=== PATIENT | female | born 1995 | race Caucasian/White ===

== ENCOUNTER 2017-05-02 03:28 | Emergency (ER) | payer BC ==
[2017-05-02] MEDS ORDERED: Sodium Chloride 0.9% 1000 ML 1,000 ML IV STA (03:59)
[2017-05-02 04:06] LABS: BASOPHIL % 0.2 % (0.0-0.4); Basophil (Absolute #) 0.02 (0-0.4); Eosinophil % 0.9 % (0.00-5.0); Eosinophil (Absolute #) 0.12 (0-0.5); Granulocyte Absolute (ANC) 8.72 (1.4-6.9); Granulocytes % 67.3 % (36.0-66.0); Hematocrit 44.3 % (35-47); Hemoglobin 14.6 gm/dl (12.0-16.0); Lymphocyte (Absolute #) 3.26 (1.0-4.6); Lymphocytes % 25.2 % (24.0-44.0); Mean Cell Volume 90.6 fl (78-100); Mean Corpuscular Hemoglobin 29.9 pg (26-32); Mean Platelet Volume 9.8 fl (6-9.5); Monocyte (Absolute #) 0.83 (0.0-1.3); Monocytes % 6.4 % (0.0-12.0); Platelet Count 268 K/mm3 (150-450); Red Blood Count 4.89 M/mm3 (4.1-5.4); Red Cell Distribution Width 12.7 % (11.5-14.0)
[2017-05-02] MEDS ORDERED: Sodium Chloride 0.9% 1000 ML 1,000 ML ONE (04:09)
[2017-05-02 04:22] LABS: ANION GAP 18.6 MEQ/L (5-15); BLOOD UREA NITROGEN 19 mg/dL (7-17); CHLORIDE 98 mmol/L (98-107); Calcium 10.5 mg/dL (8.4-10.2); Carbon Dioxide 26 mmol/L (22-30); Creatinine 1 0.61 mg/dL (0.52-1.04); Glucose 138 mg/dL (74-106); Potassium 3.6 mmol/L (3.5-5.1); SODIUM 140 mmol/L (137-145)
--- NOTE | 2017-05-02 04:26 | ERPHSYRPT ---
- History of Present Illness Time Seen by Provider: 05/02/17 03:45 Source: patient Exam Limitations: clinical condition Patient Subjective Stated Complaint: Pain in right flank that radiates to right front abdomen. Blood in urine 2 days ago and had pain while urinating but that has subsided. Triage Nursing Assessment: Pt A&O x3, pain during palpation of RUQ and right lateral side of abdomen, stated that she has pain in the right flank, P 104, BP 146/97, urine cloudy, bilateral pulses normal, bowel sounds in all 4 quadrants Physician History: PATIENT COMPLAINS OF ACUTE RIGHT FLANK PAIN SINCE 8PM LAST NIGHT WITH RADIATION AROUND TO LOWER ABDOMEN ASSOCIATED WITH FREQUENCY AND HEMATURIA PAST 48 HOURS. DENIES FEVER OR CHILLS Timing/Duration: yesterday Activites at Onset: none Quality: throbbing Onset Location: right flank Pain Radiation: RLQ Severity of Pain-Max: moderate Severity of Pain-Current: moderate Prior abdominal problems: none Sexual intercourse history: non-contributory Modifying Factors: Improves With: nothing Associated Symptoms: dysuria, other (HEMATURIA) Allergies/Adverse Reactions: Penicillins Allergy (Mild, Verified 05/02/17 03:51) Rash escitalopram [From Lexapro] Adverse Reaction (Verified 05/02/17 03:52) Home Medications: Norgestimate-Ethinyl Estradiol [Tri-Sprintec] 1 tablet PO DAILY 05/02/17 [ History] Hx Tetanus, Diphtheria Vaccination/Date Given: No Hx Influenza Vaccination/Date Given: No Hx Pneumococcal Vaccination/Date Given: No - Review of Systems Constitutional: No Fever, No Chills Eyes: No Symptoms Ears, Nose, & Throat: No Symptoms Respiratory: No Symptoms, No Cough, No Dyspnea Cardiac: No Symptoms, No Chest Pain, No Edema, No Syncope Abdominal/Gastrointestinal: Abdominal Pain, No Nausea, No Vomiting, No Diarrhea Genitourinary Symptoms: Frequency, Hematuria, Flank Pain, No Dysuria Musculoskeletal: No Symptoms, No Back Pain, No Neck Pain Skin: No Rash Neurological: No Dizziness, No Focal Weakness, No Sensory Changes Psychological: No Symptoms Endocrine: No Symptoms All Other Systems: Reviewed and Negative - Past Medical History Pertinent Past Medical History: Yes Neurological History: No Pertinent History ENT History: No Pertinent History Cardiac History: No Pertinent History Respiratory History: No Pertinent History Endocrine Medical History: No Pertinent History Musculoskeletal History: No Pertinent History GI Medical History: No Pertinent History History: No Pertinent History Psycho-Social History: No Pertinent History Female Reproductive Disorders: No Pertinent History Other Medical History: depression - Past Surgical History Past Surgical History: Yes Neuro Surgical History: No Pertinent History Cardiac: No Pertinent History Respiratory: No Pertinent History Gastrointestinal: No Pertinent History Genitourinary: No Pertinent History Musculoskeletal: No Pertinent History Female Surgical History: No Pertinent History Other Surgical History: toe sx, tonsils, tubes, cysts removed supa wrists - Social History Smoking Status: Never smoker Exposure to second hand smoke: No Drug Use: none Patient Lives Alone: No - Female History Hx Last Menstrual Period: 04/13/2017 Hx Now: (unsure) - Nursing Vital Signs Nursing Vital Signs: Initial Vital Signs Temperature 97.4 F 05/02/17 03:32 Pulse Rate 113 H 05/02/17 03:32 Blood Pressure 146/97 05/02/17 03:32 O2 Sat by Pulse Oximetry 100 05/02/17 03:32 Pain Scale Pain Intensity 8 - Physical Exam General Appearance: no apparent distress, alert Eye Exam: PERRL/EOMI, eyes nml inspection Ears, Nose, Throat Exam: normal ENT inspection, TMs normal, pharynx normal, moist mucous membranes Neck Exam: normal inspection, non-tender, supple, full range of motion Respiratory Exam: normal breath sounds, lungs clear, No respiratory distress Cardiovascular Exam: regular rate/rhythm, normal heart sounds, normal peripheral pulses Gastrointestinal/Abdomen Exam: soft, normal bowel sounds, tenderness (RIGHT LOWER LATERAL TENDERNESS), No mass Back Exam: normal inspection, normal range of motion, CVA tenderness (MODERATE DISCOMFORT), No vertebral tenderness Extremity Exam: normal inspection, normal range of motion, pelvis stable Neurologic Exam: alert, oriented x 3, cooperative, digital technician II-XII nml as tested, normal mood/affect, sensation nml, No motor deficits Skin Exam: normal color, warm, dry Lymphatic Exam: No adenopathy SpO2 Interpretation: normal SpO2: 100 Oxygen Delivery: Room Air - CT Exams Abdomen/Pelvis CT Interpretation: Tele-radiologist Report (MINIMAL RIGHT PERIURETERAL STRANDING WITHOUT STONES, DIFFERENTIAL EITHER URETERITIS VS PASSED STONE) Ordered Tests: Active Orders 24 hr Category Date Time Status IV Insertion STAT Care 05/02/17 03:59 Active ABDOMEN AND PELVIS W/0 CONTRAS [CT] Stat Exams 05/02/17 04:00 Taken BLOOD CULTURE Stat Lab 05/02/17 04:25 Received BMP Stat Lab 05/02/17 03:45 Completed CBC W DIFF Stat Lab 05/02/17 03:45 Completed CULTURE,URINE Stat Lab 05/02/17 03:45 Received HCG,QUALITATIVE URINE Stat Lab 05/02/17 03:45 Completed UA W/ MICROSCOPIC Stat Lab 05/02/17 03:45 Completed Medication Summary Discontinued Medications Generic Name Dose Route Start Last Admin Trade Name Regla PRN Reason Stop Dose Admin Sodium Chloride 1,000 mls @ 999 mls/hr 05/02/17 03:59 05/02/17 04:09 Sodium Chloride 0.9% 1000 Ml IV 05/02/17 04:59 999 mls/hr .Q1H1M STA Administration Sodium Chloride Confirm 05/02/17 04:09 Sodium Chloride 0.9% 1000 Ml Administered 05/02/17 04:10 Dose 1,000 mls @ ud .ROUTE .STK-MED ONE Levofloxacin/Dextrose 500 mg in 100 mls @ 100 mls/hr 05/02/17 05:19 05/02/17 05:40 Levofloxacin 500mg/100ml D5w IV 05/02/17 06:18 100 mls/hr STAT STA Administration Levofloxacin/Dextrose Confirm 05/02/17 05:39 Levofloxacin 500mg/100ml D5w Administered 05/02/17 05:40 Dose 500 mg in 100 mls @ ud IV .STK-MED ONE Lab/Rad Data: Laboratory Result Diagrams 05/02/17 03:45 05/02/17 03:45 Laboratory Results 05/02/17 05/02/17 05/02/17 Range/Units 03:45 03:45 03:45 WBC (4.0-10.5) K/mm3 RBC (4.1-5.4) M/mm3 Hgb (12.0-16.0) gm/dl Hct (35-47) % MCV (78-100) fl MCH (26-32) pg MCHC (32-36) g/dl RDW (11.5-14.0) % Plt Count (150-450) K/mm3 MPV (6-9.5) fl Gran % (36.0-66.0) % Lymphocytes % (24.0-44.0) % Monocytes % (0.0-12.0) % Eosinophils % (0.00-5.0) % Basophils % (0.0-0.4) % Basophils # (0-0.4) Sodium 140 (137-145) mmol/L Potassium 3.6 (3.5-5.1) mmol/L Chloride 98 (98-107) mmol/L Carbon Dioxide 26 (22-30) mmol/L Anion Gap 18.6 H (5-15) MEQ/L BUN 19 H (7-17) mg/dL Creatinine 0.61 (0.52-1.04) mg/dL Estimated GFR > 60 ML/MIN Glucose 138 H (74-106) mg/dL Calcium 10.5 H (8.4-10.2) mg/dL Ur Collection Type CLEAN CATCH Urine Color YELLOW (YELLOW) Urine Appearance SLIGHTLY CLOUDY (CLEAR) Urine pH 5.0 (5-6) Ur Specific [place] 1.020 (1.005-1.025) Urine Protein 30 (Negative) Urine Ketones NEGATIVE (NEGATIVE) Urine Blood 250 (0-5) Oscar/ul Urine Nitrite POSITIVE (NEGATIVE) Urine Bilirubin NEGATIVE (NEGATIVE) Urine Urobilinogen NORMAL (0-1) mg/dL Ur Leukocyte Esterase TRACE (NEGATIVE) Urine Microscopic RBC 10-15 (0-2) /HPF Urine Microscopic WBC 5-10 (0-5) /HPF Ur Epithelial Cells FEW (FEW) /HPF Urine Bacteria MODERATE (NEGATIVE) /HPF Urine Yeast FEW (NEGATIVE) /HPF Urine Culture Reflexed YES (NO) Urine Glucose NEGATIVE (NEGATIVE) mg/dL Urine HCG, Qual NEGATIVE (Negative) Specimen Received 05/02/17 0400 05/02/17 Range/Units 03:45 WBC 13.0 H (4.0-10.5) K/mm3 RBC 4.89 (4.1-5.4) M/mm3 Hgb 14.6 (12.0-16.0) gm/dl Hct 44.3 (35-47) % MCV 90.6 (78-100) fl MCH 29.9 (26-32) pg MCHC 33.0 (32-36) g/dl RDW 12.7 (11.5-14.0) % Plt Count 268 (150-450) K/mm3 MPV 9.8 H (6-9.5) fl Gran % 67.3 H (36.0-66.0) % Lymphocytes % 25.2 (24.0-44.0) % Monocytes % 6.4 (0.0-12.0) % Eosinophils % 0.9 (0.00-5.0) % Basophils % 0.2 (0.0-0.4) % Basophils # 0.02 (0-0.4) Sodium (137-145) mmol/L Potassium (3.5-5.1) mmol/L Chloride (98-107) mmol/L Carbon Dioxide (22-30) mmol/L Anion Gap (5-15) MEQ/L BUN (7-17) mg/dL Creatinine (0.52-1.04) mg/dL Estimated GFR ML/MIN Glucose (74-106) mg/dL Calcium (8.4-10.2) mg/dL Ur Collection Type Urine Color (YELLOW) Urine Appearance (CLEAR) Urine pH (5-6) Ur Specific [place] (1.005-1.025) Urine Protein (Negative) Urine Ketones (NEGATIVE) Urine Blood (0-5) Oscar/ul Urine Nitrite (NEGATIVE) Urine Bilirubin (NEGATIVE) Urine Urobilinogen (0-1) mg/dL Ur Leukocyte Esterase (NEGATIVE) Urine Microscopic RBC (0-2) /HPF Urine Microscopic WBC (0-5) /HPF Ur Epithelial Cells (FEW) /HPF Urine Bacteria (NEGATIVE) /HPF Urine Yeast (NEGATIVE) /HPF Urine Culture Reflexed (NO) Urine Glucose (NEGATIVE) mg/dL Urine HCG, Qual (Negative) Specimen Received - Progress Progress: improved Progress Note: 05/02/17 04:05 ADMINISTERED IV NORMAL SALINE 1000ML/HR, TORADOL 30MG IV, LEVAQUIN 500MG IVPB 05/02/17 05:57 Blood Culture(s) Obtained: Yes Antibiotics given: Yes Counseled pt/family regarding: lab results, diagnosis, need for follow-up, rad results - Departure Time of Disposition: 07:05 Departure Disposition: Home Clinical Impression: RIGHT RENAL COLIC, URINARY TRACT INFECTION Condition: Stable Critical Care Time: No Critical Care Time(excluding separately billable procedures): 30-74 minutes Referrals: AIDE MARRUFO MD [Primary Care Provider] - Additional Instructions: ANTIBIOTIC BACTRIM DS TWICE DAILY FOR 10 DAYS. NORCO 10/325 EVERY 4 HOURS FOR PAIN NEEDED. PYRIDIUM 100MG AFTER MEALS FOR 2 DAYS. VOID USING A STRAINER FOR 72 HOURS. CONSULT YOUR PRIMARY CARE PROVIDER FOR FOLLOWUP IN 1 WEEK. Prescriptions: Hydrocodone/APAP 10/325 mg [Luke 10/325 MG Tablet] 1 tab PO Q4H PRN PRN 4 Days #15 tablet MDD 4 PRN Reason: Pain Phenazopyridine HCl [Pyridium] 100 mg PO TID #6 tablet Smz/Tmp Ds Tablet [Bactrim Ds Tablet] 1 tab PO BID #20 tablet
[2017-05-02 04:49] LABS: Appearance SLIGHTLY CLOUDY (CLEAR); Bilirubin NEGATIVE (NEGATIVE); Blood 250 Ery/ul (0-5); Glucose NEGATIVE (NEGATIVE); Ketones NEGATIVE (NEGATIVE); Leukocyte Esterase TRACE (NEGATIVE); Nitrite POSITIVE (NEGATIVE); Protein,Urine Dip 30 (Negative); Urobilinogen NORMAL mg/dL (0-1)
[2017-05-02 04:50] LABS: Bacteria MODERATE /HPF (NEGATIVE); Epithelial Cells FEW /HPF (FEW)
[2017-05-02] MEDS ORDERED: Levofloxacin 500MG/100ML D5W 500 MG/100 ML BAG IV STA (05:19)
[2017-05-02] MEDS ORDERED: Levofloxacin 500MG/100ML D5W 500 MG/100 ML BAG IV ONE (05:39)
[2017-05-02 06:56] VITALS: BP 122/81; PULSE 92
[2017-05-02] MEDS ORDERED: TORAdol 30 mg Injection ONE (06:59)
[2017-05-02] MEDS ORDERED: TORAdol 30 mg Injection IV ONE (06:59)
[2017-05-02 07:00] VITALS: O2SAT 100
--- NOTE | 2017-05-02 08:10 | XRAY ---
Indication: Right flank pain. Multiple contiguous axial images obtained through the abdomen and pelvis without contrast using renal stone protocol. Comparison: Contrast exam December 04, 2014. Lung bases are clear. Heart is not enlarged. Minimal faint bilateral nephrocalcinosis. Right ureter asymmetrically prominent with very minimal stranding either ureteritis versus recent passage of calculus. Stomach distended with food. Noncontrasted stomach and bowel loops appear nonobstructed. Normal appendix. Again mild fatty liver. Remaining liver, gallbladder, pancreas, spleen, adrenal glands, kidneys, left ureter, bladder, uterus, and aorta appear unremarkable for noncontrast exam. Osseous structures intact. Impression: 1. Asymmetrically prominent right ureter with minimal stranding either ureteritis versus recent passage of calculus. 2. Faint nonobstructing bilateral nephrocalcinosis. 3. Stable fatty liver. Comment: Preliminary interpretation was made by [facility]. No critical discrepancy. CTDI 23.68
== END 2017-05-02 07:10 | disposition home or self-care (01) ==
LOC: ED 03:28
DX: N39.0 Urinary tract infection, site not specified (principal); R10.31 Right lower quadrant pain; R31.9 Hematuria, unspecified; N23 Unspecified renal colic
CPT/HCPCS: 36000; 36415; 74176; 80048; 81000; 84703; 85025; 87040; 87077; 87086; 87186; 96360; 99284; J1885; J1956

== ENCOUNTER 2023-04-03 18:42 | Emergency (ER) | payer BC ==
[2023-04-03 19:13] VITALS: RESP 18; TEMP 98.8
[2023-04-03] MEDS ORDERED: Lomotil ONE (19:16)
[2023-04-03] MEDS ORDERED: Sodium Chloride 0.9% 1000 ML 1,000 ML ONE (19:16)
[2023-04-03] MEDS: Lomotil PO ONE (19:20)
[2023-04-03] MEDS: Sodium Chloride 0.9% 1000 ML 1,000 ML IV STA (19:21)
--- NOTE | 2023-04-03 19:25 | ERPHSYRPT ---
- History of Present Illness Historian: patient Exam Limitations: no limitations Patient Subjective Stated Complaint: C/O upper abdominal pain radiating through to her back and pulsating rectum pain Triage Nursing Assessment: Patient ambulated back to ER. She is alert and oriented. NO SOB. Skin tone normal. Abdomen soft. Skin tone normal. Timing/Duration: yesterday Activities at Onset: rest Quality: aching, dullness Abdominal Pain Onset Location: generalized abdomen (Generalized lower abdomen) Pain Radiation: back (Bilateral costovertebral angles) Severity of Pain-Max: severe Severity of Pain-Current: moderate Modifying Factors: Improves With: nothing Associated Symptoms: back Hx Tetanus, Diphtheria Vaccination/Date Given: Yes Hx Influenza Vaccination/Date Given: No Hx Pneumococcal Vaccination/Date Given: No Immunizations Up to Date: Yes <JOHNNIE HUMPHREYS - Last Filed: 04/03/23 19:20> <CECY WILHELM - Last Filed: 04/03/23 22:14> - History of Present Illness Time Seen by Provider: 04/03/23 19:00 Physician History: Patient is a 28-year-old female with abdominal pain for 1 day. Pain is in her lower abdomen but radiates to her bilateral costovertebral angle. It is described as a dull ache and is currently 4 out of 10. It is been up to a 10. She has had diarrhea for the last 2 months and currently has nausea without vomiting. Patient was seen in the [facility] yesterday and diagnosed with UTI was also seen in the [facility] earlier today with a negative gallbladder ultrasound. Nothing makes the pain better or worse. She has some dysuria without hematuria. There is no cough, coryza or fever at this time. She was prescribed Keflex for her UTI yesterday. Patient has had no surgeries on her abdomen and suffers from [place]. (JOHNNIE HUMPHREYS) Allergies/Adverse Reactions: Penicillins Allergy (Mild, Verified 04/03/23 18:50) Rash escitalopram [From Lexapro] Adverse Reaction (Verified 04/03/23 18:50) Home Medications: Cephalexin Mh 500 mg [Keflex 500 mg] 1 cap PO BID 04/03/23 [History] Travel Risk - International Travel Have you traveled outside of the country in past 3 weeks: No - Coronavirus Screening Are you exhibiting any of the following symptoms?: Yes Symptoms: Vomiting/Diarrhea Close contact with a COVID-19 positive Pt in past 14-21 Days: No - Vaccine Status Have you recieved a Covid-19 vaccination: Yes [employer]: [email or web address] - Vaccination Dates Date of 2cond Vaccination (if applicable): ? <JOHNNIE HUMPHREYS - Last Filed: 04/03/23 19:20> - Review of Systems Constitutional: No Symptoms Eyes: No Symptoms Ears, Nose, & Throat: No Symptoms Respiratory: No Symptoms Cardiac: No Symptoms Abdominal/Gastrointestinal: No Symptoms, Abdominal Pain, Nausea, Diarrhea Genitourinary Symptoms: Dysuria Musculoskeletal: No Symptoms Neurological: No Symptoms Psychological: No Symptoms Endocrine: No Symptoms Hematologic/Lymphatic: No Symptoms Immunological/Allergic: No Symptoms <JOHNNIE HUMPHREYS - Last Filed: 04/03/23 19:20> - Past Medical History Pertinent Past Medical History: Yes Neurological History: No Pertinent History ENT History: No Pertinent History Cardiac History: No Pertinent History Respiratory History: No Pertinent History Endocrine Medical History: Liver Disease Musculoskeletal History: No Pertinent History GI Medical History: No Pertinent History History: No Pertinent History Psycho-Social History: Depression Female Reproductive Disorders: No Pertinent History Other Medical History: depression - Past Surgical History Past Surgical History: Yes Neuro Surgical History: No Pertinent History Cardiac: No Pertinent History Respiratory: No Pertinent History Gastrointestinal: No Pertinent History Genitourinary: No Pertinent History Musculoskeletal: No Pertinent History Female Surgical History: No Pertinent History Other Surgical History: toe sx, tonsils, tubes, cysts removed supa wrists, 3 surgeries to right foot to remove cysts - Social History Smoking Status: Never smoker Exposure to second hand smoke: No Drug Use: none Patient Lives Alone: No - Female History Hx Last Menstrual Period: Few weeks ago Hx Now: No <JOHNNIE HUMPHREYS - Last Filed: 04/03/23 19:20> - Physical Exam General Appearance: no apparent distress Eye Exam: PERRL/EOMI, eyes nml inspection Ears, Nose, Throat Exam: normal ENT inspection, TMs normal, pharynx normal, moist mucous membranes Neck Exam: normal inspection, supple Respiratory Exam: normal breath sounds, lungs clear, airway intact Cardiovascular Exam: tachycardia, capillary refill <2 sec, No murmur Gastrointestinal/Abdomen Exam: soft, normal bowel sounds, tenderness (Mild diffuse lower abdominal tenderness palpation without guarding or rebound) Back Exam: normal inspection, normal range of motion Extremity Exam: normal inspection, normal range of motion Neurologic Exam: alert, oriented x 3, cooperative Skin Exam: normal color, warm, dry Lymphatic Exam: No adenopathy SpO2 Interpretation: normal SpO2: 100 O2 Delivery: Room Air <JOHNNIE HUMPHREYS - Last Filed: 04/03/23 19:20> - Nursing Vital Signs Nursing Vital Signs: Initial Vital Signs Temperature 98.8 F 04/03/23 18:56 Pulse Rate 107 H 04/03/23 18:56 Respiratory Rate 18 04/03/23 18:56 Blood Pressure 124/94 04/03/23 18:56 O2 Sat by Pulse Oximetry 99 04/03/23 18:56 Pain Scale Pain Intensity 4 Tachycardic (JOHNNIE HUMPHREYS) Ordered Tests: Active Orders 24 hr Category Date Time Status IV Insertion STAT Care 04/03/23 19:10 Active ABDOMEN AND PELVIS W/0 CONTRAS [CT] Stat Exams 04/03/23 20:44 Completed AMYLASE Stat Lab 04/03/23 19:10 Completed CBC W DIFF Stat Lab 04/03/23 19:24 Completed CMP Stat Lab 04/03/23 19:10 Completed CULTURE,URINE Stat Lab 04/03/23 19:13 Received HCG QUALITATIVE, SERUM Stat Lab 04/03/23 19:40 Completed LIPASE Stat Lab 04/03/23 19:10 Completed Lactic Acid Stat Lab 04/03/23 19:35 Completed UA W/RFX UR CULTURE Stat Lab 04/03/23 19:13 Completed Medication Summary Discontinued Medications Generic Name Dose Route Start Last Admin Trade Name Freq PRN Reason Stop Dose Admin Diphenoxylate HCl/Atropine 2 tablet 04/03/23 19:11 04/03/23 19:20 Diphenoxylate Hcl/Atropine 1 Tablet PO 04/03/23 19:12 2 tablet STAT ONE Administration Diphenoxylate HCl/Atropine Confirm 04/03/23 19:16 Diphenoxylate Hcl/Atropine 1 Tablet Administered 04/03/23 19:17 Dose 2 tablet .ROUTE .STK-MED ONE Sodium Chloride 1,000 mls @ 999 mls/hr 04/03/23 19:10 04/03/23 19:21 Sodium Chloride 0.9% 1000 Ml IV 04/03/23 20:10 999 mls/hr .Q1H1M STA Administration Sodium Chloride Confirm 04/03/23 19:16 Sodium Chloride 0.9% 1000 Ml Administered 04/03/23 19:17 Dose 1,000 mls @ ud .ROUTE .STK-MED ONE Metronidazole 500 mg 04/03/23 22:05 Metronidazole 500 Mg Tablet PO 04/03/23 22:06 STAT ONE Lab/Rad Data: Laboratory Result Diagrams 04/03/23 19:24 04/03/23 19:10 Laboratory Results 04/03/23 04/03/23 04/03/23 Range/Units 20:00 19:40 19:35 WBC (4.0-10.5) x10^3/uL RBC (4.1-5.4) x10^6/uL Hgb (12.0-16.0) g/dL Hct (35-47) % MCV (78-100) fL MCH (26-32) pg MCHC (32-36) g/dL RDW (11.5-14.0) % Plt Count (150-450) x10^3/uL MPV (7.5-11.0) fL Gran % (36.0-66.0) % Immature Gran % (Auto) (0.00-0.4) % Nucleat RBC Rel Count (0.00-0.1) % Eos # (Auto) (0-0.5) x10^3/uL Immature Gran # (Auto) (0.00-0.03) x10^3u/L Absolute Lymphs (auto) (1.0-4.6) x10^3/uL Absolute Monos (auto) (0.0-1.3) x10^3/uL Absolute Nucleated RBC (0.00-0.01) x10^3u/L Lymphocytes % (24.0-44.0) % Monocytes % (0.0-12.0) % Eosinophils % (0.00-5.0) % Basophils % (0.0-0.4) % Absolute Granulocytes (1.4-6.9) x10^3/uL Basophils # (0-0.4) x10^3/uL Sodium (137-145) mmol/L Potassium (3.5-5.1) mmol/L Chloride (98-107) mmol/L Carbon Dioxide (22-30) mmol/L Anion Gap (5-15) MEQ/L BUN (7-17) mg/dL Creatinine (0.52-1.04) mg/dL Estimated GFR ML/MIN Glucose (74-106) mg/dL Lactic Acid 1.4 (0.4-2.0) Calcium (8.4-10.2) mg/dL Total Bilirubin (0.2-1.3) mg/dL AST (14-36) U/L ALT (0-35) U/L Alkaline Phosphatase (38-126) U/L Serum Total Protein (6.3-8.2) g/dL Albumin (3.5-5.0) g/dL Amylase (30-110) U/L Lipase (23-300) U/L Serum HCG, Qual NEGATIVE (NEGATIVE) Urine Color (Yellow) Urine Appearance (Clear) Urine pH (4.6-8.0) Ur Specific [place] (1.005-1.030) Urine Protein (Negative) Urine Glucose (UA) (Negative) mg/dL Urine Ketones (Negative) Urine Blood (Negative) Urine Nitrite (Negative) Urine Bilirubin (Negative) Urine Urobilinogen (0.2) mg/dL Ur Leukocyte Esterase (Negative) U Hyaline Cast (Auto) (0-2) /LPF Urine Microscopic RBC (0-5) /HPF Urine Microscopic WBC (0-5) /HPF Ur Epithelial Cells (None Seen) /HPF Urine Bacteria (None Seen) /HPF Urine Culture Reflexed (NO) Influenza Type A Ag NEGATIVE (NEGATIVE) Influenza Type B Ag NEGATIVE (NEGATIVE) RSV (PCR) NEGATIVE (NEGATIVE) SARS-CoV-2 (PCR) NEGATIVE (NEGATIVE) 04/03/23 04/03/23 04/03/23 Range/Units 19:24 19:13 19:10 WBC 9.0 (4.0-10.5) x10^3/uL RBC 4.94 (4.1-5.4) x10^6/uL Hgb 14.7 (12.0-16.0) g/dL Hct 45.7 (35-47) % MCV 92.5 (78-100) fL MCH 29.8 (26-32) pg MCHC 32.2 (32-36) g/dL RDW 12.5 (11.5-14.0) % Plt Count 273 (150-450) x10^3/uL MPV 9.3 (7.5-11.0) fL Gran % 67.5 H (36.0-66.0) % Immature Gran % (Auto) 0.4 (0.00-0.4) % Nucleat RBC Rel Count 0.0 (0.00-0.1) % Eos # (Auto) 0.04 (0-0.5) x10^3/uL Immature Gran # (Auto) 0.04 H (0.00-0.03) x10^3u/L Absolute Lymphs (auto) 2.04 (1.0-4.6) x10^3/uL Absolute Monos (auto) 0.76 (0.0-1.3) x10^3/uL Absolute Nucleated RBC 0.00 (0.00-0.01) x10^3u/L Lymphocytes % 22.8 L (24.0-44.0) % Monocytes % 8.5 (0.0-12.0) % Eosinophils % 0.4 (0.00-5.0) % Basophils % 0.4 (0.0-0.4) % Absolute Granulocytes 6.03 (1.4-6.9) x10^3/uL Basophils # 0.04 (0-0.4) x10^3/uL Sodium 138 (137-145) mmol/L Potassium 4.0 (3.5-5.1) mmol/L Chloride 100 (98-107) mmol/L Carbon Dioxide 33 H (22-30) mmol/L Anion Gap 9.2 (5-15) MEQ/L BUN 15 (7-17) mg/dL Creatinine 0.63 (0.52-1.04) mg/dL Estimated GFR 123.8 ML/MIN Glucose 93 (74-106) mg/dL Lactic Acid (0.4-2.0) Calcium 10.2 (8.4-10.2) mg/dL Total Bilirubin 0.50 (0.2-1.3) mg/dL AST 48 H (14-36) U/L ALT 78 H (0-35) U/L Alkaline Phosphatase 77 (38-126) U/L Serum Total Protein 8.9 H (6.3-8.2) g/dL Albumin 5.3 H (3.5-5.0) g/dL Amylase 89 (30-110) U/L Lipase 145 (23-300) U/L Serum HCG, Qual (NEGATIVE) Urine Color Dark Yellow A (Yellow) Urine Appearance Clear (Clear) Urine pH 5.5 (4.6-8.0) Ur Specific [place] 1.025 (1.005-1.030) Urine Protein 30 (Negative) Urine Glucose (UA) Negative (Negative) mg/dL Urine Ketones Negative (Negative) Urine Blood Negative (Negative) Urine Nitrite Positive A (Negative) Urine Bilirubin Negative (Negative) Urine Urobilinogen 1.0 A (0.2) mg/dL Ur Leukocyte Esterase Small A (Negative) U Hyaline Cast (Auto) NONE SEEN (0-2) /LPF Urine Microscopic RBC 0-2 (0-5) /HPF Urine Microscopic WBC 21-50 A (0-5) /HPF Ur Epithelial Cells None Seen (None Seen) /HPF Urine Bacteria None Seen (None Seen) /HPF Urine Culture Reflexed YES (NO) Influenza Type A Ag (NEGATIVE) Influenza Type B Ag (NEGATIVE) RSV (PCR) (NEGATIVE) SARS-CoV-2 (PCR) (NEGATIVE) - Progress Progress: improved, re-examined Counseled pt/family regarding: lab results, diagnosis, need for follow-up, rad results <CECY WILHELM - Last Filed: 04/03/23 22:14> - Progress Progress Note: 04/03/23 22:08 This patient was examined, evaluated by Dr. Cantu prior to my arrival to the emergency department. Patient workup and labs were ordered by him. I followed up on the results. The patient has a history of liver abnormalities that she is aware of. She has chronically elevated LFTs. Her workup is of moderate complexity. I interpreted the patient's laboratory data results. Patient has a persistent UTI. Patient's liver transaminases enzymes are mildly elevated. Patient was instructed to continue her oral antibiotics. The CT scan of the abdomen pelvis was interpreted by the radiologist and I reviewed the impression. Impression states mildly edematous wall of the antro pyloric region of the stomach, proximal duodenum, ileum and cecum. Picture consistent with enterocolitis. There is a left adnexal cyst present. There is also hepatomegaly. These findings were discussed with the patient. (CECY WILHELM) Medical Desision Making - Diagnostic Testing Diagnostic test were ordered, analyzed, and reviewed by me: Yes Radiological Interpretation: Reviewed by me, Teleradiologist Report - Risk of complications The pt has a mod risk of morbidity or mortality based on: Need for prescription drug management <CECY WILHELM - Last Filed: 04/03/23 22:14> <JOHNNIE HUMPHREYS - Last Filed: 04/03/23 19:20> - Departure Departure Disposition: Home Critical Care Time: No <CECY WILHELM - Last Filed: 04/03/23 22:14> - Departure Clinical Impression: UTI (urinary tract infection), Elevated liver enzymes, Hepatomegaly, Enterocolitis, Adnexal cyst Condition: Stable Referrals: ERNESTINA BRIGGS NP [Primary Care Provider] - Follow up/PCP as directed Additional Instructions: Drink plenty of fluids. Continue your oral antibiotic as prescribed. Take the additional antibiotic as prescribed. Make sure you are eating plenty of yogurt. You may also take [id number] probiotics. Follow-up with your primary care provider on 04/06/2023 for further evaluation management. Prescriptions: Metronidazole 500 mg [Flagyl 500 MG] 500 mg PO TID #21 tablet
[2023-04-03 19:26] LABS: Absolute Neutrophil Ct (ANC) 6.03 x10^3/uL (1.4-6.9); BASOPHIL % 0.4 % (0.0-0.4); Basophil (Absolute #) 0.04 x10^3/uL (0-0.4); Eosinophil % 0.4 % (0.00-5.0); Eosinophil (Absolute #) 0.04 x10^3/uL (0-0.5); Hematocrit 45.7 % (35-47); Hemoglobin 14.7 g/dL (12.0-16.0); IMMATURE GRAN # 0.04 x10^3u/L (0.00-0.03); IMMATURE GRAN % 0.4 % (0.00-0.4); Lymphocyte (Absolute #) 2.04 x10^3/uL (1.0-4.6); Lymphocytes % 22.8 % (24.0-44.0); Mean Cell Volume 92.5 fL (78-100); Mean Corpuscular Hemoglobin 29.8 pg (26-32); Mean Corpuscular Hgb Concent. 32.2 g/dL (32-36); Mean Platelet Volume 9.3 fL (7.5-11.0); Monocyte (Absolute #) 0.76 x10^3/uL (0.0-1.3); Monocytes % 8.5 % (0.0-12.0); Neutrophil % 67.5 % (36.0-66.0); Platelet Count 273 x10^3/uL (150-450); Red Blood Count 4.94 x10^6/uL (4.1-5.4); Red Cell Distribution Width 12.5 % (11.5-14.0)
[2023-04-03 19:38] LABS: ALBUMIN 5.3 g/dL (3.5-5.0); ANION GAP 9.2 MEQ/L (5-15); BILIRUBIN,TOTAL 0.5 mg/dL (0.2-1.3); Calcium 10.2 mg/dL (8.4-10.2); Creatinine 1 0.63 mg/dL (0.52-1.04); EST GLOMERULAR FILTRATION RATE 123.8 ML/MIN; Total Protein 8.9 g/dL (6.3-8.2)
[2023-04-03 19:40] LABS: HCG SERUM TEST NEGATIVE (NEGATIVE)
[2023-04-03 19:41] LABS: ADD URINE CULTURE? YES (NO); Appearance Clear (Clear); Bacteria None Seen /HPF (None Seen); Bilirubin Negative (Negative); Blood Negative (Negative); Epithelial Cells None Seen /HPF (None Seen); Glucose, Urine Negative (Negative); Hyaline Casts NONE SEEN /LPF (0-2); Ketones Negative (Negative); Leukocyte Esterase Small (Negative); Nitrite Positive (Negative); Ph 5.5 (4.6-8.0); Protein,Urine Dip 30 (Negative); RBC 0-2 /HPF (0-5); Specific Gravity 1.025 (1.005-1.030); WBC 21-50 /HPF (0-5)
[2023-04-03 20:43] LABS: INFLUENZA A NEGATIVE (NEGATIVE); INFLUENZA B NEGATIVE (NEGATIVE); RESPIRATORY SYNCTIAL VIRUS NEGATIVE (NEGATIVE); SARS-CoV-2 Xpert Express NEGATIVE (NEGATIVE)
--- NOTE | 2023-04-03 21:58 | XRAY ---
CLINICAL HISTORY: ABD pain; diarrhea TECHNIQUE: CT scan of the abdomen and pelvis was performed without IV contrast. COMPARISON: None FINDINGS: Mildly edematous antro-pyloric region of stoamch and proximal part of duodenum is noted. Jejnum is collapsed with intact britton. However, ileum and cecum again show mild mural edema. These findings are also seen in descending colon. No surrounding fat stranding is noted. No evidence of bowel obstruction. Uterus shows normal dimension with mild amount of fluid in the edometrial cavity. A 45 x 42 mm cystic area is noted in relatio to left ovary. Right ovary is normally visualized. Liver is enlarged in size with regular margins. It measures 17.9 cm. No focal or diffuse parenchymal abnormality. No hepatic mass is identified. The portal vein, intrahepatic biliary radicals and the bile ducts are normal. Gall bladder appear normal with wall thickness. No radio opaque calculus or pericholecystic fluid identified. Common bile duct appears normal. Pancreas appears normal. No peripancreatic fat stranding, pancreatic pseudocyst or peripancreatic fluid collection. Spleen normal in size, no mass seen. A 15 mm splenennculus is noted. Both adrenal glands are unremarkable. Both kidneys are normal in size, shape and orientation. No calculi, cyst mass or hydronephrosis seen on either side. Both ureters and urinary bladder appear normal. No evidence of significant enlargement of the mesenteric or retroperitoneal lymph nodes. Visualized thoracic and lumbar spine appear normal. No lytic or sclerotic bone lesions in visualized bones. Visualized lung bases are unremarkable. No pleural or pericardial effusion seen. IMPRESSION: Mildly edematous britton of antro-pyloric region of stomach, proximal duodenum, ileum and cecum and proximal descending colon. No significant perilesional fat stranding or lymphadenoapthy. No obstruction. Findings are concerning for acute entero-colitis. Stool examination with clinical correlation may be further helpful. Left adnexal cyst measuring 45 x 42 mm, likely ovarian in origin. US correlation is advised. Hepatomegaly. Electronically Signed by: Ofelia Lopez MD. (04/03/2023 21:54:11 EST)
[2023-04-03 22:21] VITALS: O2SAT 97
[2023-04-03] MEDS ORDERED: Zofran 4 MG/2 ML VIAL ONE (22:29)
[2023-04-03] MEDS ORDERED: PROTONIX 40 MG IV IV ONE (22:29)
[2023-04-03] MEDS ORDERED: Sterile H2O 10 ml IJ ONE (22:29)
[2023-04-03] MEDS ORDERED: NORCO 5/325 MG ONE (22:30)
[2023-04-03] MEDS ORDERED: solu-MEDROL ONE (22:30)
[2023-04-03] MEDS ORDERED: Flagyl 500 MG ONE (22:30)
[2023-04-03] MEDS ORDERED: MORPHINE SULFATE 2 MG INJ ONE (22:30)
[2023-04-03] MEDS: NORCO 5/325 MG PO ONE (22:32)
[2023-04-03] MEDS: MORPHINE SULFATE 2 MG INJ IV ONE (22:38)
[2023-04-03] MEDS: Flagyl 500 MG PO ONE (22:38)
[2023-04-03] MEDS: Zofran 4 MG/2 ML VIAL IV ONE (22:39)
[2023-04-03] MEDS: solu-MEDROL 125 MG, Sterile H2O 10 ml 2 ML IV ONE (22:39)
[2023-04-03] MEDS: PROTONIX 40 MG IV IV ONE (22:39)
[2023-04-03 23:02] VITALS: BP 114/64; PULSE 115
== END 2023-04-03 23:07 | disposition home or self-care (01) ==
LOC: ED 18:42
DX: N39.0 Urinary tract infection, site not specified (principal); R74.8 Abnormal levels of other serum enzymes; R16.0 Hepatomegaly, not elsewhere classified; K52.9 Noninfective gastroenteritis and colitis, unspecified; N83.8 Other noninflammatory disorders of ovary, fallopian tube and broad ligament; R10.30 Lower abdominal pain, unspecified; R11.0 Nausea; R30.0 Dysuria
CPT/HCPCS: 0241U; 36000; 36415; 74176; 80053; 81001; 82150; 83605; 83690; 84703; 85025; 87086; 96374; 99284; J2270; J2405; J2930; A9270-GY